=== PATIENT | female | born 1970 ===

== ENCOUNTER 2016-07-19 21:29 | Emergency (ER) | payer SELFPAY ==
[2016-07-19 21:45] VITALS: BP 143/110; RESP 18; TEMP 98; O2SAT 100
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
[2016-07-19 23:15] VITALS: PULSE 73
--- NOTE | 2016-07-20 17:21 | CARD ---
APPROVED REPORT EKG Measurement Heart [id number] <Conclusion> Normal sinus rhythm Possible Left atrial enlargement Prolonged QT Abnormal ECG
== END 2016-07-19 23:38 | disposition home or self-care (01) ==
LOC: H.ER 21:29
DX: F41.9 Anxiety disorder, unspecified (principal); I10 Essential (primary) hypertension

== ENCOUNTER 2017-04-21 19:21 | Inpatient (IN) | payer MEDICAID ==
[2017-04-21 19:47] VITALS: O2SAT 100
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
[2017-04-22 02:33] LABS: SQUAMOUS EPITHIAL 1 /hpf (0-5); URINE BACTERIA RARE (<OCC); URINE BILIRUBIN NEGATIVE (NEGATIVE); URINE CLARITY SLIGHTY-CLOUDY (Clear); URINE COLOR YELLOW (YELLOW); URINE GLUCOSE (UA) NEG (Normal); URINE NITRATE NEGATIVE (NEGATIVE); URINE PROTEIN 100 mg/dL (NEGATIVE); URINE UROBILINOGEN 0.2-1.0 mg/dL (0.2-1.0)
[2017-04-22 02:40] LABS: BARBITURATES, UR NEGATIVE (NEGATIVE); BENZODIAZEPINES, UR NEGATIVE (NEGATIVE); OPIATES, UR NEGATIVE (NEGATIVE); PHENCYCLIDINE, UR NEGATIVE (NEGATIVE)
[2017-04-22 02:43] LABS: URINE BLOOD LARGE (NEGATIVE); URINE LEUKOCYTE ESTERASE MODERATE Leu/uL (Negative)
[2017-04-22 02:50] LABS: HEMOGLOBIN 8.2 g/dL (12.0-16.0); MEAN CELL VOLUME 59.9 fl (81.0-99.0); MEAN CORPUSCULAR HEMOGLOBIN 17.8 pg (27.0-31.0); MEAN CORPUSCULAR HGB CONC 29.8 g/dL (33.0-37.0); RBC 4.57 Mil/uL (3.80-5.20); WHITE BLOOD COUNT 6.3 K/uL (4.8-10.8)
[2017-04-22 03:01] LABS: ALB/GLOB RATIO 1.2 (1.0-2.1); ALBUMIN 3.6 g/dL (3.5-5.0); ALT/SGPT 50 U/L (9-52); AST/SGOT 38 U/L (14-36); BLOOD UREA NITROGEN 18 mg/dl (7-17); CALCIUM 8.8 mg/dL (8.4-10.2); GFR AFRICAN-AMERICAN > 60; GFR NON-AFRICAN AMERICAN > 60
--- NOTE | 2017-04-22 04:03 | ED PDOC ---
- Laboratory Results Result Diagrams: 04/22/17 02:45 04/22/17 02:45 - ECG O2 Sat by Pulse Oximetry: 100 Pulse Ox Interpretation: Normal Medical Decision Making Medical Decision Making: Endorsed pending evaluation by crisis. Pt being admitted to psychiatric unit for depression. Disposition - Clinical Impression Clinical Impression: Pharyngitis, Homelessness, UTI (urinary tract infection), Depression - POA Present On Arrival: None - Disposition Disposition: Admitted as In-Patient Disposition Time: 04:02 Condition: STABLE
[2017-04-22] MEDS ORDERED: Pneumococcal 23-Valent Vaccine IM ONE (06:05)
[2017-04-22] MEDS ORDERED: Influenza Vaccine 18yr & older 0.5 ML/45 MCG SYR IM ONE (06:05)
[2017-04-22] MEDS ORDERED: DiphenhydrAMINE 50 mg/ml Inj IM PRN (06:06)
[2017-04-22] MEDS ORDERED: Magnesium Hydroxide Susp 30 ml UD PO PRN (06:06)
[2017-04-22] MEDS ORDERED: Alum-Mag Hydrox-Simethicone Susp (30 mL) PO PRN (06:06)
--- NOTE | 2017-04-22 06:29 | PCM.BM ---
<Bryanna Healy - Last Filed: 04/22/17 06:29> Treatment assets and liabiliti Patient Assests: adapts well, cooperative, educated, insightful, motivated, resourceful, self-reliant, ADL independent, negotiates basic needs, good past tx response Patient Liabilities: financial problems, poor support system, relationship conflicts, medical problems - Milieu Protocol Maintain good personal hygiene: daily Encourage regular showers, other Remind patient to perform daily oral care Conduct patient checks and document Observation sheet: Q15 minutes Maintain personal safety: daily Educate patient to report safety concerns to staff, every shift Monitor environment for contraband/sharps Medication safety: Monitor for expected outcome, potential side effects: every shift, Assess barriers to learning: every shift, Assess readiness for medication education: every shift <Darien Jones - Last Filed: 04/23/17 12:15> - Diagnosis (1) Bipolar depression Status: Acute Interventions: 04/23/17 12:16 psychotherapy , pharmacotherapy <Kendall Correa - Last Filed: 04/23/17 12:32> Family Contact Family involvement: Family/SO is involved Family contact: Patient agrees to contact, Family has been contacted by patient , Telephone contact initiated by staff Family contact name: Cosme (john) Family contacted how many times per week?: 4 Family contact comment: Diamond Blender is unable to contact pt's fiance at this time as his phone is currently not working, but flex o writer operator's number was provided to pt to give to john, so that the pt's fiance can contact this flex o writer operator. - Outside Agency Agency 1 Care involvment: Following patient during stay, Information-sharing Agency contact name: [facility] Agency contact number: [phone] ext. [phone]. Diamond Blender attempted to speak with pt' s counselor at [facility], Cinthya. Diamond Blender spoke with Rylee who informed flex o writer operator that Cinthya is out of the office today, but will be in tomorrow. Rylee informed flex o writer operator that pt is currently linked to [facility] and can return to program once discharged. - Goals for Treatment Patient goals for treatment: Pt's goals for treatment are mostly concrete as she would like to obtain stable housing and work on obtaining state benefits, food stamps, SSI. Discharge/Continuing Care - Education Needs Education Needs: Patient Medication, Patient Diagnosis/Disease Process, Patient Coping Skills, Patient Placement options, Patient Community resources, Patient Aftercare Safety Plan - Discharge Discharge Criteria: Tolerates medication w/o severe side effects, Free of Suicidal thoughts, Free of agitation, Normal sleep pattern, Reduction of target symptoms Discharge to:: Home, [facility] - Treatment Team Participation Was Patient/Family/SO present at Treatment Team Meeting: Yes
[2017-04-22 07:44] LABS: T4 8.66 ug/dl (5.5-11.0)
--- NOTE | 2017-04-22 10:26 | RAD ---
HISTORY: Admission COMPARISON: No prior. FINDINGS: LUNGS: No active pulmonary disease. PLEURA: No significant pleural effusion identified, no pneumothorax apparent. CARDIOVASCULAR: Normal. OSSEOUS STRUCTURES: No significant abnormalities. VISUALIZED UPPER ABDOMEN: Normal. OTHER FINDINGS: None. IMPRESSION: No active disease.
--- NOTE | 2017-04-22 10:50 | CARD ---
APPROVED REPORT EKG Measurement Heart [id number] <Conclusion> Normal sinus rhythm Prolonged QT Abnormal ECG
--- NOTE | 2017-04-22 11:32 | CP.PCM.CON ---
<Dominick Franklin - Last Filed: 04/22/17 14:21> History of Present Illness - History of Present Illness History of Present Illness: 46 y/o female with PMHx of Anemia, Anxiety, Asthma, Bipolar Disorder, Depression , HTN (Gestational), Kidney Stones, Post Traumatic Stress Disorder, Chronic Kidney Disease, Schizophrenia was seen and evaluated at bedside on psych floor. Patient states that she came in to the ED yesterday because she was irritated and paranoid at her neighbors. Patient reports that they were making too much noise which upset her which led her to come to the hospital. Patient denied of any suicidal ideation. Patient denied of any recent changes in her mood aside from the incident which occured yesterday. Patient reports that she is feeling a lot better today and feels as if she is fully improved. Patient denied of any recent F/N/V/C/SOB/CP/headache/diarrhea. Patient denied of any other complains at this time. PMHx: Anemia, Anxiety, Asthma, Bipolar Disorder, Depression, HTN (Gestational), Kidney Stones, Post Traumatic Stress Disorder, Chronic Kidney Disease, Schizophrenia PSHx: Tubal ligation Allergies: Ibuprofen SHx: denies smoking, EtOH use or illicit drug usage, lives alone FHx: Denies on both side Review of Systems - Constitutional Constitutional: As Per HPI Past Patient History - Infectious Disease Hx of Infectious Diseases: None - Past Social History Alcohol: None Drugs: Denies - CARDIAC Hx Cardiac Disorders: No - PULMONARY Hx Respiratory Disorders: No - NEUROLOGICAL HX Cerebrovascular Accident: No Hx Seizures: No Hx Transient Ischemic Attacks (TIA): No - HEENT Hx HEENT Problems: No - RENAL Hx Chronic Kidney Disease: Yes Hx Kidney Stones: Yes - ENDOCRINE/METABOLIC Hx Endocrine Disorders: No - HEMATOLOGICAL/ONCOLOGICAL Hx Cancer: No Hx Human Immunodeficiency Virus (HIV): No - INTEGUMENTARY Hx Dermatological Problems: No - MUSCULOSKELETAL/RHEUMATOLOGICAL Hx Musculoskeletal Disorders: No - GASTROINTESTINAL Hx Gastrointestinal Disorders: No - GENITOURINARY/GYNECOLOGICAL Hx Sexually Transmitted Disorders: No - PSYCHIATRIC Hx Schizophrenia: Yes Hx Substance Use: No - SURGICAL HISTORY Hx Surgeries: Yes Hx Tubal Ligation: Yes Other/Comment: lithotripsy - ANESTHESIA Hx Anesthesia: Yes Hx Anesthesia Reactions: No Hx Malignant Hyperthermia: No Has any member of the family had a problem w/ anesthesia?: No Meds Allergies/Adverse Reactions: Allergies Allergy/AdvReac Type Severity Reaction Status Date / Time aloe vera Allergy RASH Verified 04/22/17 01:44 ibuprofen Allergy RASH Verified 04/22/17 01:45 paint Allergy RASH Uncoded 04/22/17 01:44 - Medications Medications: Current Medications Acetaminophen (Tylenol 325mg Tab) 650 mg PO Q4 PRN PRN Reason: pain level 3-7 Last Admin: 04/22/17 08:04 Dose: 650 mg Al Hydrox/Mg Hydrox/Simethicone (Maalox Plus 30 Ml) 30 ml PO Q4 PRN PRN Reason: Dyspepsia Ciprofloxacin (Cipro) 500 mg PO Q12 OWEN PRN Reason: Protocol Last Admin: 04/22/17 03:06 Dose: 500 mg Diphenhydramine HCl (Benadryl) 50 mg IM Q6 PRN PRN Reason: Extrapyramidal S/S Unable PO Diphenhydramine HCl (Benadryl) 50 mg PO Q6 PRN PRN Reason: Extrapyramidal Symptoms Diphenhydramine HCl (Benadryl) 50 mg PO HS PRN PRN Reason: Sleep Haloperidol (Haldol) 5 mg PO Q4 PRN PRN Reason: Agitation Haloperidol Lactate (Haldol) 5 mg IM Q4 PRN PRN Reason: Agitation, Unable to Take PO Lorazepam (Ativan) 2 mg IM Q4 PRN PRN Reason: Anxiety/Agitation,Unable PO Lorazepam (Ativan) 2 mg PO Q4 PRN PRN Reason: Anxiety/Agitation Magnesium Hydroxide (Milk Of Magnesia) 30 ml PO HS PRN PRN Reason: Constipation Physical Exam - Constitutional Appears: Well, Non-toxic, No Acute Distress - Head Exam Head Exam: ATRAUMATIC - Eye Exam Eye Exam: Normal appearance, PERRL - ENT Exam ENT Exam: Normal Exam - Neck Exam Neck exam: Positive for: Full Rom, Normal Inspection. Negative for: Lymphadenopathy - Respiratory Exam Respiratory Exam: Clear to Auscultation Bilateral, NORMAL BREATHING PATTERN. absent: Rales, Rhonchi, Wheezes - Cardiovascular Exam Cardiovascular Exam: REGULAR RHYTHM, +S1, +S2 - GI/Abdominal Exam GI & Abdominal Exam: Normal Bowel Sounds, Soft. absent: Guarding - Rectal Exam Rectal Exam: Deferred - Extremities Exam Extremities exam: Positive for: full ROM, normal capillary refill, normal inspection, pedal pulses present. Negative for: calf tenderness, pedal edema, tenderness - Back Exam Back exam: FULL ROM, NORMAL INSPECTION. absent: vertebral tenderness - Neurological Exam Neurological exam: Alert, Normal Gait, Oriented x3 - Psychiatric Exam Psychiatric exam: Normal Affect, Normal Mood - Skin Skin Exam: Dry, Intact, Normal Color, Warm Results - Vital Signs Recent Vital Signs: Last Vital Signs Temp 97.9 F 04/22/17 05:12 Pulse 80 04/22/17 05:38 Resp 17 04/22/17 05:38 BP 128/66 04/22/17 05:12 Pulse Ox 100 04/22/17 04:21 - Labs Result Diagrams: 04/22/17 02:45 04/22/17 02:45 Labs: Laboratory Results - last 24 hr 04/21/17 04/22/17 04/22/17 20:36 02:21 02:21 WBC RBC Hgb Hct MCV MCH MCHC RDW Plt Count Sodium Potassium Chloride Carbon Dioxide Anion Gap BUN Creatinine Est GFR ( Amer) Est GFR (Non-Af Amer) Random Glucose Calcium Total Bilirubin AST ALT Alkaline Phosphatase Total Protein Albumin Globulin Albumin/Globulin Ratio Thyroxine (T4) TSH 3rd Generation Urine Color Yellow Urine Clarity Slighty-cloudy Urine pH 7.0 Ur Specific Lambert < 1.005 Urine Protein 100 Urine Glucose (UA) Neg Urine Ketones Negative Urine Blood Large Urine Nitrate Negative Urine Bilirubin Negative Urine Urobilinogen 0.2-1.0 Ur Leukocyte Esterase Moderate Urine RBC (Auto) 3 Urine Microscopic WBC 4 Ur Squamous Epith Cells 1 Urine Bacteria Rare Urine Opiates Screen Negative Urine Methadone Screen Negative Ur Barbiturates Screen Negative Ur Phencyclidine Scrn Negative Ur Amphetamines Screen Negative U Benzodiazepines Scrn Negative U Oth Cocaine Metabols Negative U Cannabinoids Screen Negative Alcohol, Quantitative Grp A Beta Strep Ag Negative 04/22/17 04/22/17 04/22/17 02:45 02:45 06:28 WBC 6.3 RBC 4.57 Hgb 8.2 L Hct 27.4 L MCV 59.9 L MCH 17.8 L MCHC 29.8 L RDW 20.0 H Plt Count 288 Sodium 139 Potassium 3.7 Chloride 107 Carbon Dioxide 28 Anion Gap 8 L BUN 18 H Creatinine 0.9 Est GFR ( Amer) > 60 Est GFR (Non-Af Amer) > 60 Random Glucose 100 Calcium 8.8 Total Bilirubin 0.6 AST 38 H ALT 50 Alkaline Phosphatase 102 Total Protein 6.6 Albumin 3.6 Globulin 3.0 Albumin/Globulin Ratio 1.2 Thyroxine (T4) 8.66 TSH 3rd Generation 1.80 Urine Color Urine Clarity Urine pH Ur Specific Lambert Urine Protein Urine Glucose (UA) Urine Ketones Urine Blood Urine Nitrate Urine Bilirubin Urine Urobilinogen Ur Leukocyte Esterase Urine RBC (Auto) Urine Microscopic WBC Ur Squamous Epith Cells Urine Bacteria Urine Opiates Screen Urine Methadone Screen Ur Barbiturates Screen Ur Phencyclidine Scrn Ur Amphetamines Screen U Benzodiazepines Scrn U Oth Cocaine Metabols U Cannabinoids Screen Alcohol, Quantitative < 10 Grp A Beta Strep Ag Assessment & Plan - Assessment and Plan (Free Text) Assessment: 46 y/o female with PMHx of Anemia, Anxiety, Asthma, Bipolar Disorder, Depression , HTN (Gestational), Kidney Stones, Post Traumatic Stress Disorder, Chronic Kidney Disease, Schizophrenia seen and evaluated in psych for non-symptomatic anemia Plan: Patient seen and evaluated at bedside Patient has non-symptomatic anemia which can be worked up as an outpatient - follow up with a primary care doctor Recommend iron supplements Patient is stable at this time Primary team will continue to follow patient while in house - Date & Time Date: 04/22/17 Time: 11:00 <Ian Solo - Last Filed: 04/22/17 14:33> Meds - Medications Medications: Current Medications Acetaminophen (Tylenol 325mg Tab) 650 mg PO Q4 PRN PRN Reason: pain level 3-7 Last Admin: 04/22/17 08:04 Dose: 650 mg Al Hydrox/Mg Hydrox/Simethicone (Maalox Plus 30 Ml) 30 ml PO Q4 PRN PRN Reason: Dyspepsia Aripiprazole (Abilify) 5 mg PO DAILY [facility] Last Admin: 04/22/17 13:54 Dose: 5 mg Ciprofloxacin (Cipro) 500 mg PO Q12 OWEN PRN Reason: Protocol Last Admin: 04/22/17 13:54 Dose: 500 mg Diphenhydramine HCl (Benadryl) 50 mg IM Q6 PRN PRN Reason: Extrapyramidal S/S Unable PO Diphenhydramine HCl (Benadryl) 50 mg PO Q6 PRN PRN Reason: Extrapyramidal Symptoms Diphenhydramine HCl (Benadryl) 50 mg PO HS PRN PRN Reason: Sleep Haloperidol (Haldol) 5 mg PO Q4 PRN PRN Reason: Agitation Haloperidol Lactate (Haldol) 5 mg IM Q4 PRN PRN Reason: Agitation, Unable to Take PO Lorazepam (Ativan) 2 mg IM Q4 PRN PRN Reason: Anxiety/Agitation,Unable PO Lorazepam (Ativan) 2 mg PO Q4 PRN PRN Reason: Anxiety/Agitation Magnesium Hydroxide (Milk Of Magnesia) 30 ml PO HS PRN PRN Reason: Constipation Paroxetine HCl (Paxil) 10 mg PO HS OWEN Zolpidem Tartrate (Ambien) 5 mg PO HS OWEN Results - Vital Signs Recent Vital Signs: Last Vital Signs Temp 97.9 F 04/22/17 05:12 Pulse 80 04/22/17 05:38 Resp 17 04/22/17 05:38 BP 128/66 04/22/17 05:12 Pulse Ox 100 04/22/17 04:21 - Labs Result Diagrams: 04/22/17 02:45 04/22/17 02:45 Labs: Laboratory Results - last 24 hr 04/21/17 04/22/17 04/22/17 20:36 02:21 02:21 WBC RBC Hgb Hct MCV MCH MCHC RDW Plt Count Sodium Potassium Chloride Carbon Dioxide Anion Gap BUN Creatinine Est GFR ( Amer) Est GFR (Non-Af Amer) Random Glucose Calcium Total Bilirubin AST ALT Alkaline Phosphatase Total Protein Albumin Globulin Albumin/Globulin Ratio Thyroxine (T4) TSH 3rd Generation Urine Color Yellow Urine Clarity Slighty-cloudy Urine pH 7.0 Ur Specific Lambert < 1.005 Urine Protein 100 Urine Glucose (UA) Neg Urine Ketones Negative Urine Blood Large Urine Nitrate Negative Urine Bilirubin Negative Urine Urobilinogen 0.2-1.0 Ur Leukocyte Esterase Moderate Urine RBC (Auto) 3 Urine Microscopic WBC 4 Ur Squamous Epith Cells 1 Urine Bacteria Rare Urine Opiates Screen Negative Urine Methadone Screen Negative Ur Barbiturates Screen Negative Ur Phencyclidine Scrn Negative Ur Amphetamines Screen Negative U Benzodiazepines Scrn Negative U Oth Cocaine Metabols Negative U Cannabinoids Screen Negative Alcohol, Quantitative Grp A Beta Strep Ag Negative 04/22/17 04/22/17 04/22/17 02:45 02:45 06:28 WBC 6.3 RBC 4.57 Hgb 8.2 L Hct 27.4 L MCV 59.9 L MCH 17.8 L MCHC 29.8 L RDW 20.0 H Plt Count 288 Sodium 139 Potassium 3.7 Chloride 107 Carbon Dioxide 28 Anion Gap 8 L BUN 18 H Creatinine 0.9 Est GFR ( Amer) > 60 Est GFR (Non-Af Amer) > 60 Random Glucose 100 Calcium 8.8 Total Bilirubin 0.6 AST 38 H ALT 50 Alkaline Phosphatase 102 Total Protein 6.6 Albumin 3.6 Globulin 3.0 Albumin/Globulin Ratio 1.2 Thyroxine (T4) 8.66 TSH 3rd Generation 1.80 Urine Color Urine Clarity Urine pH Ur Specific Lambert Urine Protein Urine Glucose (UA) Urine Ketones Urine Blood Urine Nitrate Urine Bilirubin Urine Urobilinogen Ur Leukocyte Esterase Urine RBC (Auto) Urine Microscopic WBC Ur Squamous Epith Cells Urine Bacteria Urine Opiates Screen Urine Methadone Screen Ur Barbiturates Screen Ur Phencyclidine Scrn Ur Amphetamines Screen U Benzodiazepines Scrn U Oth Cocaine Metabols U Cannabinoids Screen Alcohol, Quantitative < 10 Grp A Beta Strep Ag Attending/Attestation - Attestation I have personally seen and examined this patient.: Yes I have fully participated in the care of the patient.: Yes I have reviewed all pertinent clinical information: Yes Notes (Text): No active medical issues. Anemia workup as outpatient. Not symptomatic.
--- NOTE | 2017-04-22 12:49 | PCM.PSYCH ---
Initial Psychiatric Evaluation - Initial Psychiatric Evaluation Type of Admission: Voluntary Legal Status: Capacity Chief Complaint (in patient's own words): I have a hard life Patient's Reaction to Hospitalization: pt requested help History of Present Illness and Precipitating Events: pt is a poor historian, REPORTED previous diagnosis of depression with history of one previous psychiatric hospitalization 3 years ago, now following up with Dr CHEUNG she sees him once a month, pt is also homeless , has four children currently living with father, would not elaborate why she lost custody of the children pt stated she has been feeling increasingly depressed as she has a pending case of child child supportand she cannot afford paying it also she has been missing her children, on the day of presenting to ER she experienced suicidal thoughts with plan to jump off the bridge so she came to ER seeking help reported decreased sleep, depressed mood, pt however presenting with overproductive speech, circumstantial thought process and labile affect denied any current perceptual disturbances denied command hallucinations, denied substance useand denied suicidal ideations or homicidal ideations on the unit Current Medications: Active Medications Generic Name Dose Route Start Last Admin Trade Name Freq PRN Reason Stop Dose Admin Acetaminophen 650 mg 04/22/17 06:06 04/22/17 08:04 Tylenol 325mg Tab PO 650 mg Q4 PRN Administration pain level 3-7 Al Hydrox/Mg Hydrox/Simethicone 30 ml 04/22/17 06:06 Maalox Plus 30 Ml PO Q4 PRN Dyspepsia Aripiprazole 5 mg 04/22/17 11:30 Abilify PO DAILY OWEN Ciprofloxacin 500 mg 04/22/17 03:00 04/22/17 03:06 Cipro PO 500 mg Q12 OWEN Administration Protocol Diphenhydramine HCl 50 mg 04/22/17 06:06 Benadryl IM Q6 PRN Extrapyramidal S/S Unable PO Diphenhydramine HCl 50 mg 04/22/17 06:06 Benadryl PO Q6 PRN Extrapyramidal Symptoms Diphenhydramine HCl 50 mg 04/22/17 06:10 Benadryl PO HS PRN Sleep Haloperidol 5 mg 04/22/17 06:06 Haldol PO Q4 PRN Agitation Haloperidol Lactate 5 mg 04/22/17 06:06 Haldol IM Q4 PRN Agitation, Unable to Take PO Lorazepam 2 mg 04/22/17 06:06 Ativan IM Q4 PRN Anxiety/Agitation,Unable PO Lorazepam 2 mg 04/22/17 06:06 Ativan PO Q4 PRN Anxiety/Agitation Magnesium Hydroxide 30 ml 04/22/17 06:06 Milk Of Magnesia PO HS PRN Constipation Paroxetine HCl 10 mg 04/22/17 22:00 Paxil PO HS OWEN Trazodone HCl 50 mg 04/22/17 22:00 Desyrel PO HS OWEN Past Psychiatric History - Past Psychiatric History Explanation of prior treatment: pt reported one previous hospitalization at [facility] due to depression History of ETOH/Drug Use: non reported History of Family Illness: non reported Pertinent Medical Hx (Current Medical&Sleep Prob, Allergies): Allergies Allergy/AdvReac Type Severity Reaction Status Date / Time aloe vera Allergy RASH Verified 04/22/17 01:44 ibuprofen Allergy RASH Verified 04/22/17 01:45 paint Allergy RASH Uncoded 04/22/17 01:44 PARoxetine [Paxil] 30 mg PO DAILY #30 tab 07/17/16 Xanax 1 tab PO TID 04/12/17 Mental Status Examination - Personal Presentation Personal Presentation: Looks stated age Additional comments: guarded poor eye contact - Affect Affect: Broad Additional comments: labile irritable - Motor Activity Motor Activity: Psychomotor Agitation - Reliability in Providing Information Reliability in Providing Information: Poor, due to altered mood - Speech Speech: Tangential Additional comments: overproductive - Mood Mood: Depressed, Anxious - Formal Thought Process Formal Thought Process: Circumstantial - Hallucinations/Delusions Additional comments: pt denied perceptual disturbances, non elicited - Obsessions/Compulsions Obsessions: No Compulsions: No - Cognitive Functions Orientation: Person, Place, Situation Sensorium: Alert Attention/Concentration: Easily distracted Abstract Thinking: Lamont Estimate of Intelligence: Average Judgement: Imparied, as evidence by: Poor judgement, Imparied, as evidence by: Lack of insight into illness Memory: Recent intact, as evidence by: Ability to recall events of the day - Risk Risk: Suicidal, Diminished functioning - Strength & Assets Inventory Strength & Assets Inventory: Life experience - Limitations Additional comments: legal problems DSM 5 DX - DSM 5 DSM 5 Diagnosis: bipolar disorder depressed - Recommended/Plan of Treatment Treatment Recommendations and Plan of Treatment: start abilify 5mg for mood stabiliztion continue paxil 10mg qhs with plan to discontinue with pt consent alecien 5m group and supportive therapy qhs Projected ELOS: 7 days Discharge Plan and Discharge Criteria: pt mood stable
[2017-04-22] MEDS ORDERED: Benzocaine/Menthol (Cepacol) Lozenge PO PRN (20:50)
[2017-04-23 07:49] LABS: HDL CHOLESTEROL 55 MG/DL (30-70)
[2017-04-23 08:00] LABS: LDL CHOLESTEROL 82 mg/dL (0-129)
--- NOTE | 2017-04-23 12:40 | PCM.PYCHPN ---
Psychiatric Progress Note - Psychiatric Progress Note Patient seen today, length of contact: pt evaluated discussed with team chart reviewed Patient Chief Complaint: I want to be with my father Problems Identified/Issues Discussed: pt on evaluation, hypomanic, with increased energy, over productive speech, loud , intrusive at times with other patients, presenting with labile affect at times cheerful and at other times depressed and crying, thought form circumstantial, argumentative about her medications, refusing mood stabilizers for fear of weight gain pt denied any current perceptual disturbances non elicited, denied any current suicidal or homicidal ideations l Medical Problems: pt reported one previous hospitalization at [facility] [place] due to depression DSM 5 Symptoms Update: bipolar I disorder mixed Medication Change: Yes (start trileptal) Medical Record Reviewed: Yes Mental Status Examination - Cognitive Function Orientation: Person, Place, Situation Memory: Intact Attention: Poor Concentration: Poor Association: WNL Fund of Knowledge: WNL Decription of patient's judgement and insights: impaired insight and poor judgment - Mood Mood: Depressed, Anxious - Affect Affect: Broad Additional comments: labile - Speech Speech: Loud, Pressured - Formal Thought Process Formal Thought Process: Circumstantial Psychotic Thoughts and Behaviors: pt denied psychotic symptoms non elicited - Suicidal Ideation Suicidal Ideation: No - Homicidal Ideation Homicidal Ideation: No Goal/Treatment Plan - Goal/Treatment Plan Need for Continued Stay: Discharge may exacerbated symptoms Progress Toward Problem(s) and Goals/Treatment Plan: Increase abilify 5mg for mood stabiliztion decrease paxil to 5mg qhs with plan to discontinue increase ambien to 10mg qhs , start trileptal 150 mg bid group and supportive therapy qhs Estimated Date of D/C: 04/28/17
--- NOTE | 2017-04-24 11:55 | PCM.PYCHPN ---
Psychiatric Progress Note - Psychiatric Progress Note Patient seen today, length of contact: pt evaluated discussed with team chart reviewed Patient Chief Complaint: I am trying to organize for my wedding in december Problems Identified/Issues Discussed: pt on evaluation, continues to be hypomanic, overproductive speech, thought process circumstantial, grandiose delusions, labile and irritable affect, reported mood unhappy as she would like to be outside and conquer the world pt educated about importance of compliance with medications and being on a mood stabilizer, pt agreed with increasing dose of trileptal denied any current suicidal or homicidal idetions denied perceptual disturbances no reported side effects of medications Medical Problems: pt reported one previous hospitalization at [facility] due to depression DSM 5 Symptoms Update: bipolar I disorder mixed episode Medication Change: Yes (increase trileptal) Medical Record Reviewed: Yes Mental Status Examination - Cognitive Function Orientation: Person, Place, Situation Memory: Intact Attention: WNL Concentration: Poor Association: WNL Fund of Knowledge: WNL Decription of patient's judgement and insights: impaired insight and poor judgment - Mood Mood: Depressed, Anxious - Affect Affect: Broad Additional comments: labile, irritable - Speech Speech: Loud, Pressured - Formal Thought Process Formal Thought Process: Circumstantial Psychotic Thoughts and Behaviors: pt denied psychotic symptoms non elicited - Suicidal Ideation Suicidal Ideation: No - Homicidal Ideation Homicidal Ideation: No Goal/Treatment Plan - Goal/Treatment Plan Need for Continued Stay: Discharge may exacerbated symptoms Progress Toward Problem(s) and Goals/Treatment Plan: continue with abilify 5mg for mood stabiliztion and grandiose delusions discontinue paxil , increase trileptal to 300mg bid continue with ambien to 10mg qhs , group and supportive therapy qhs Estimated Date of D/C: 04/28/17
--- NOTE | 2017-04-25 15:15 | PCM.PYCHPN ---
Psychiatric Progress Note - Psychiatric Progress Note Patient seen today, length of contact: pt evaluated discussed with team chart reviewed Patient Chief Complaint: I like to buy a lot of things but I have no money Problems Identified/Issues Discussed: pt evaluated, continues to be hypomanic , overproductive speech , labile affect , increased energy, thought form ciircumstantial pt reported decreased sleep with late insomnia no reported side effects of medications denied suicidal or homicidal ideations denied perceptual disturbances Medical Problems: pt reported one previous hospitalization at [facility] due to depression DSM 5 Symptoms Update: bipolar I disorder mixed Medication Change: Yes (increase trileptal) Medical Record Reviewed: Yes Mental Status Examination - Cognitive Function Orientation: Person, Place, Situation Memory: Intact Attention: WNL Concentration: Poor Association: WNL Fund of Knowledge: WNL Decription of patient's judgement and insights: impaired insight and poor judgment - Mood Mood: Depressed, Anxious - Affect Affect: Broad - Speech Speech: Loud, Pressured - Formal Thought Process Formal Thought Process: Circumstantial Psychotic Thoughts and Behaviors: pt denied psychotic symptoms non elicited - Suicidal Ideation Suicidal Ideation: No - Homicidal Ideation Homicidal Ideation: No Goal/Treatment Plan - Goal/Treatment Plan Need for Continued Stay: Discharge may exacerbated symptoms Progress Toward Problem(s) and Goals/Treatment Plan: continue with abilify 5mg for mood stabiliztion and grandiose delusions discontinue paxil , increase trileptal to 300mg tid continue with ambien to 10mg qhs , group and supportive therapy qhs Estimated Date of D/C: 04/28/17
[2017-04-26 09:15] VITALS: RESP 18
--- NOTE | 2017-04-26 18:37 | PCM.PYCHPN ---
Psychiatric Progress Note - Psychiatric Progress Note Patient seen today, length of contact: pt evaluated discussed with team chart reviewed Patient Chief Complaint: was at [facility] became depressed came to hospital hx of bipolar Problems Identified/Issues Discussed: alteration in coping alteration in domicile Medical Problems: per chart Diagnostic Results: per psychiatry per medicine per nursing per social work DSM 5 Symptoms Update: mood symptoms somewhat improving although continues to be somewhat hypomanic t Medication Change: No Medical Record Reviewed: Yes Consults ordered or reviewed: pt being followed by hospitalist Mental Status Examination - Cognitive Function Orientation: Person, Place, Situation Memory: Intact Attention: WNL Concentration: Poor Association: WNL Fund of Knowledge: [facility] Decription of patient's judgement and insights: impaired - Mood Mood: Depressed, Anxious - Affect Affect: Broad - Speech Speech: Loud, Pressured - Formal Thought Process Formal Thought Process: Circumstantial - Homicidal Ideation Homicidal Ideation: No Goal/Treatment Plan - Goal/Treatment Plan Need for Continued Stay: Discharge may exacerbated symptoms Progress Toward Problem(s) and Goals/Treatment Plan: inpt milieu adjust rx per status recent increase trileptal yesterday discharge planning in [facility] Estimated Date of D/C: 04/28/17 - Smoking Cessation Smoking Cessation Initiated: No Reason for not providing: defers
[2017-04-27 20:36] VITALS: PULSE 80
--- NOTE | 2017-04-27 20:52 | PCM.PYCHPN ---
Psychiatric Progress Note - Psychiatric Progress Note Patient seen today, length of contact: pt evaluated discussed with team chart reviewed Patient Chief Complaint: reports feeling calmer, staff report pt somewhat calmer , adherent with rx. denies notable side effects with medications Problems Identified/Issues Discussed: alteration in mood alteration in sleep alteration in coping alteration in domicile Medical Problems: per chart Diagnostic Results: per psychiatry per medicine per nursing per social work DSM 5 Symptoms Update: improving mood ?improvement in sleepi Medication Change: No Medical Record Reviewed: Yes Consults ordered or reviewed: pt being followed by hospitalist Mental Status Examination - Cognitive Function Orientation: Person, Place, Situation Memory: Intact Attention: WNL Concentration: Poor Association: WNL Fund of Knowledge: WNL Decription of patient's judgement and insights: impaired - Mood Mood: Depressed, Anxious - Affect Affect: Broad - Speech Speech: Loud, Pressured - Formal Thought Process Formal Thought Process: Circumstantial - Suicidal Ideation Suicidal Ideation: No - Homicidal Ideation Homicidal Ideation: No Goal/Treatment Plan - Goal/Treatment Plan Need for Continued Stay: Discharge may exacerbated symptoms Progress Toward Problem(s) and Goals/Treatment Plan: inpt milieu adjust rx per status recent increase trileptal yesterday vital signs/clinical observation per protocol and per clinical status discharge planning in [facility] Estimated Date of D/C: 04/28/17 - Smoking Cessation Smoking Cessation Initiated: No Reason for not providing: pt defers
[2017-04-28 08:34] VITALS: BP 128/75; TEMP 98.4
--- NOTE | 2017-04-28 13:53 | PCM.PYCHDC ---
Mental Status Examination - Mental Status Examination Orientation: Person, Place, Situation Memory: Intact Mood: Neutral Affect: Broad Attention: WNL Concentration: WNL Association: WNL Fund of Knowledge: WNL Formal Thought Process: No Impairment Description of patient's judgement and insight: partial insight and poor judgment Psychotic Thoughts and Behaviors: pt denied psychotic symptoms non elicited Suicidal Ideation: No Current Homicidal Ideation?: No Discharge Summary - Discharge Note Reason for Hospitalization: pt requested help REPORTED previous diagnosis of depression with history of one previous psychiatric hospitalization 3 years ago, now following up with Dr CHEUNG she sees him once a month, pt is also homeless , has four children currently living with father, would not elaborate why she lost custody of the children pt stated she has been feeling increasingly depressed as she has a pending case of child child supportand she cannot afford paying it also she has been missing her children, on the day of presenting to ER she experienced suicidal thoughts with plan to jump off the bridge so she came to ER seeking help reported decreased sleep, depressed mood, pt however presenting with overproductive speech, circumstantial thought process and labile affect denied any current perceptual disturbances denied command hallucinations, denied substance useand denied suicidal ideations or homicidal ideations on the unit Consultations:: List each consultation separately and include: 1. Reason for request. 2. Findings. 3. Follow-up Summary of Hospital Course include:: 1. Description of specific treatment plan utilized for patients during their course of treatmen. 2. Summarize the time- course for resolution of acute symptoms and/or regressed behaviors. 3. Describe issues identified and worked on during hospitalization. 4. Describe medication utilized. 5. Describe medical problems identified and treated. 6. Reassessment of suicide risk Summary of Hospital Course: pt on admission was labile , irritable and hypomanic, paxil was gradually discontinued and pt was started on trileptal, abilify and ambien, it was gradually uptitrated pt gradually became compliant with treatment attended groups , mood and affect gradually less kabile no reported side effects of medications CBT suopportive and group therapy provided on discharge mental status pt denied suicidal or homicidal ideations denied perceptual disturbances, not danger to self or others - Diagnosis (1) Bipolar depression Current Visit: Yes Status: Acute - Final Diagnosis (DSM 5) Condition upon Discharge: STABLE DSM 5: bipolar I disorer mixed severe without psychotic features Disposition: HOME/ ROUTINE Follow-up Treatment Plan: continue with abilify 5mg for mood stabiliztion and grandiose delusions discontinue paxil , increase trileptal to 300mg tid continue with ambien to 10mg qhs , group and supportive therapy qhs Prescriptions/Medication Reconciliation: ARIPiprazole [Abilify] 10 mg PO HS 15 Days #15 tab ARIPiprazole [Abilify] 5 mg PO DAILY 15 Days #15 tab OXcarbazepine [Trileptal] 300 mg PO BID 15 Days #30 tab Zolpidem [Ambien] 10 mg PO HS 3 Days #15 tab - Antipsychotic Medications Pt discharged on 2 or more routine antipsychotic medications: No
== END 2017-04-28 14:09 | disposition home or self-care (01) | DRG 430 ==
LOC: H.ER 19:21 → H.ERHOLD 04-22 03:15 → H.PSYCH 04-22 05:34
PROVIDERS: ADMIT Psychiatry & Neurology Psychiatry; ATTEND Psychiatry & Neurology Psychiatry
PROC: GZHZZZZ Group Psychotherapy (ICD-10-PCS; principal; 2017-04-22)
PROC: GZ58ZZZ Individual Psychotherapy, Cognitive-Behavioral (ICD-10-PCS; 2017-04-22)
PROC: GZ56ZZZ Individual Psychotherapy, Supportive (ICD-10-PCS; 2017-04-22)
PROC: 3E0234Z Introduction of Serum, Toxoid and Vaccine into Muscle, Percutaneous Approach (ICD-10-PCS; 2017-04-22)
DX: F31.63 Bipolar disorder, current episode mixed, severe, without psychotic features (principal); D64.9 Anemia, unspecified; N18.9 Chronic kidney disease, unspecified; G47.09 Other insomnia; Z59.0 Homelessness; J02.9 Acute pharyngitis, unspecified; J45.909 Unspecified asthma, uncomplicated; Z23 Encounter for immunization; Z88.6 Allergy status to analgesic agent

== ENCOUNTER 2017-09-20 22:56 | Emergency (ER) | payer MEDICAID ==
[2017-09-20 22:59] VITALS: BMI 27.4
--- NOTE | 2017-09-20 23:48 | ED PDOC ---
HPI: Psych/Substance Abuse Time Seen by Provider: 09/20/17 23:10 Chief Complaint (Provider): Psychiatric Evaluation History Per: Patient History/Exam Limitations: no limitations Onset/Duration Of Symptoms: Hrs Current Symptoms Are (Timing): Still Present Associated Symptoms: Depression, Suicidal Thoughts. denies: Suicidal Plan Additional Complaint(s): Hiwot Villanueva is a 47 year old female with a past medical history of PTSD, anxiety, hypertension, and depression, who is presenting to the ED with complaints of severe depression and suicidal thoughts, onset this morning s/p son telling her that he disowned her. Patient denies any specific plan as well as taking any medications for her depression. She denies any homicidal ideation , auditory or visual hallucinations. Patient offers no other medical complaints at this time. PMD: [facility] Past Medical History Reviewed: Historical Data, Nursing Documentation, Vital Signs Vital Signs: Last Vital Signs Temp 98.2 F 09/20/17 22:59 Pulse 78 09/20/17 22:59 Resp 17 09/20/17 22:59 BP 165/100 H 09/20/17 22:59 Pulse Ox 98 09/20/17 22:59 - Medical History PMH: Anemia, Anxiety, Asthma, Bipolar Disorder, Depression, HTN (Gestational), Kidney Stones, Post Traumatic Stress Disorder, Chronic Kidney Disease, Schizophrenia Denies: Diabetes, Hepatitis, HIV, Seizures, Sexually Transmitted Disease, TIA - Surgical History Surgical History: No Surg Hx - Family History Family History: States: Hypertension - Social History Current smoker - smoking cessation education provided: No Alcohol: None Drugs: Denies - Immunization History Hx Tetanus Toxoid Vaccination: No Hx Influenza Vaccination: No Hx Pneumococcal Vaccination: No - Home Medications Home Medications: Ambulatory Orders Medication Instructions Recorded PARoxetine [Paxil] 30 mg PO DAILY #30 tab 07/17/16 Xanax 1 tab PO TID 04/12/17 ARIPiprazole [Abilify] 5 mg PO DAILY 15 Days #15 tab 04/28/17 ARIPiprazole [Abilify] 10 mg PO HS 15 Days #15 tab 04/28/17 Ciprofloxacin [Cipro] 500 mg PO Q12 tab 04/28/17 OXcarbazepine [Trileptal] 300 mg PO BID 15 Days #30 tab 04/28/17 Zolpidem [Ambien] 10 mg PO HS 3 Days #15 tab 04/28/17 Acetaminophen [Tylenol] 325 mg PO Q6 PRN #30 tab 06/17/17 Amoxicillin/Clavulanate [Augmentin 1 tab PO BID #14 tab 06/17/17 875 MG-125 MG] Benzonatate [Tessalon Perles] 200 mg PO TID PRN #21 sgl 06/17/17 Meclizine HCl 25 mg PO TID PRN #21 tab 06/17/17 Phenazopyridine HCl [Pyridium] 200 mg PO TID #7 tablet 06/17/17 Nitrofurantoin Macrocrystals 100 mg PO BID 5 Days cap 09/21/17 [Macrobid] - Allergies Allergies/Adverse Reactions: Allergies Allergy/AdvReac Type Severity Reaction Status Date / Time aloe vera Allergy RASH Verified 06/17/17 10:22 ibuprofen Allergy RASH Verified 06/17/17 10:22 paint Allergy Mild RASH Uncoded 06/17/17 10:22 Review of Systems ROS Statement: Except As Marked, All Systems Reviewed And Found Negative Psych: Positive for: Depression, Suicidal ideation. Negative for: Other ( homicidal ideation, auditory or visual hallucinations) Physical Exam - Reviewed Nursing Documentation Reviewed: Yes Vital Signs Reviewed: Yes - Physical Exam Appears: Positive for: Well, Non-toxic, No Acute Distress Head Exam: Positive for: ATRAUMATIC, NORMOCEPHALIC Skin: Positive for: Warm, Dry Eye Exam: Positive for: EOMI, PERRL ENT: Negative for: Pharyngeal Erythema, Tonsillar Exudate Neck: Positive for: Painless ROM, Supple Cardiovascular/Chest: Positive for: Regular Rate, Rhythm. Negative for: Murmur Respiratory: Positive for: Normal Breath Sounds. Negative for: Respiratory Distress Gastrointestinal/Abdominal: Positive for: Soft. Negative for: Tenderness Back: Positive for: Normal Inspection. Negative for: Decreased ROM Extremity: Positive for: Normal ROM. Negative for: Deformity Lymphatic: Negative for: Adenopathy Neurologic/Psych: Positive for: Alert, embossing tool setter II-XII (intact), Oriented (x3), Mood/ Affect (depressed mood and affect). Negative for: Motor/Sensory Deficits - Laboratory Results Result Diagrams: 09/21/17 00:04 09/21/17 03:40 - ECG O2 Sat by Pulse Oximetry: 98 (RA) Pulse Ox Interpretation: Normal Medical Decision Making Medical Decision Making: Time: 23:28 Impression: Depression with Suicidal Ideation Plan: --Acetaminophen --Alcohol Serum --Salicylate --CMP --CBC --Drug Screen --Crisis Evaluation --ED Urine Dipstick --ED Urine 12a Endorsed to Dr Morin pending ER workup and crisis eval and final disposition Scribe Attestation: Documented by, Danelle Barnard acting as a scribe for Jessica Herrmann MD. Provider Scribe Attestation: All medical record entries made by the Scribe were at my direction and personally dictated by me. I have reviewed the chart and agree that the record accurately reflects my personal performance of the history, physical exam, medical decision making, and the department course for this patient. I have also personally directed, reviewed, and agree with the discharge instructions and disposition. Disposition - Clinical Impression Clinical Impression: UTI (urinary tract infection), Depressive disorder - Disposition Referrals: [facility] [Outside] Disposition: Transfer of Care Disposition Time: 00:00 Condition: STABLE Prescriptions: Nitrofurantoin Macrocrystals [Macrobid] 100 mg PO BID 5 Days cap Instructions: Urinary Tract Infections in Adults, Depression Forms: [employer] ([employer]) Patient Signed Over To: Bob Morin Handoff Comments: Pending ER workup, ER workup and final ER disposition
[2017-09-21 00:16] LABS: BASO # 0.1 K/uL (0.0-0.2); EOS # 0.2 K/uL (0.0-0.7); EOS % 3.3 % (0.0-4.0); HEMOGLOBIN 10.4 g/dL (12.0-16.0); LYMPH # 1.5 K/uL (1.0-4.3); LYMPH % 21.7 % (20.0-40.0); MEAN CELL VOLUME 69.4 fl (81.0-99.0); MEAN CORPUSCULAR HEMOGLOBIN 21.6 pg (27.0-31.0); MEAN PLATELET VOLUME 8.6 fl (7.2-11.7); MONO # 0.5 K/uL (0.0-0.8); MONO % 7.1 % (0.0-10.0); NEUT # 4.7 K/uL (1.8-7.0); NEUT % 66.9 % (50.0-75.0); RBC 4.82 Mil/uL (3.80-5.20); RED CELL DISTRIBUTION WIDTH 25.9 % (11.5-14.5)
[2017-09-21 00:33] LABS: ACETAMINOPHEN < 10.0 ug/ml (10.0-30.0); SALICYLATE < 1.0 mg/dl
--- NOTE | 2017-09-21 02:48 | ED PDOC ---
- Laboratory Results Result Diagrams: 09/21/17 00:04 09/21/17 03:40 - ECG O2 Sat by Pulse Oximetry: 98 (RA) Pulse Ox Interpretation: Normal Medical Decision Making Medical Decision Making: Time: 00:00 Patient was endorsed to me Dr. Herrmann pending labs, crisis evaluation, and, ED workup. 0300 No events 0700 Pendign crisis eval, will endorse to Dr. Matthews Scribe Attestation: Documented by, Danelle Barnard acting as a scribe for Bob Morin MD. Provider Scribe Attestation: All medical record entries made by the Scribe were at my direction and personally dictated by me. I have reviewed the chart and agree that the record accurately reflects my personal performance of the history, physical exam, medical decision making, and the department course for this patient. I have also personally directed, reviewed, and agree with the discharge instructions and disposition. Disposition - Clinical Impression Clinical Impression: UTI (urinary tract infection), Depressive disorder - POA Present On Arrival: None - Disposition Referrals: [facility] [Outside] Disposition: Transfer of Care Disposition Time: 07:00 Condition: STABLE Prescriptions: Nitrofurantoin Macrocrystals [Macrobid] 100 mg PO BID 5 Days cap Instructions: Urinary Tract Infections in Adults, Depression Forms: [employer] (Irish) Patient Signed Over To: Latia Matthews Handoff Comments: pending crisis eval
[2017-09-21 02:50] LABS: BARBITURATES, UR NEGATIVE (NEGATIVE); BENZODIAZEPINES, UR NEGATIVE (NEGATIVE)
[2017-09-21 02:51] LABS: OPIATES, UR NEGATIVE (NEGATIVE); PHENCYCLIDINE, UR NEGATIVE (NEGATIVE)
[2017-09-21 03:11] LABS: SQUAMOUS EPITHIAL 2 /hpf (0-5); URINE BACTERIA RARE (<OCC)
[2017-09-21 03:18] LABS: URINE BILIRUBIN NEGATIVE (NEGATIVE); URINE BLOOD LARGE (NEGATIVE); URINE CLARITY SLIGHTY-CLOUDY (Clear); URINE COLOR YELLOW (YELLOW); URINE GLUCOSE (UA) NEG (Normal); URINE LEUKOCYTE ESTERASE MOD Leu/uL (Negative); URINE PROTEIN NEGATIVE (NEGATIVE); URINE UROBILINOGEN 0.2-1.0 mg/dL (0.2-1.0)
[2017-09-21 03:47] LABS: BLOOD UREA NITROGEN 23 mg/dl (7-17)
[2017-09-21 03:48] LABS: ALBUMIN 3.5 g/dL (3.5-5.0); CALCIUM 8.6 mg/dL (8.4-10.2); GFR AFRICAN-AMERICAN > 60; GFR NON-AFRICAN AMERICAN > 60
[2017-09-21 03:49] LABS: ALB/GLOB RATIO 1.2 (1.0-2.1); ALT/SGPT 27 U/L (9-52); AST/SGOT 40 U/L (14-36)
[2017-09-21 06:40] VITALS: BP 130/76; PULSE 82; RESP 18; TEMP 98.7
[2017-09-21 22:16] VITALS: O2SAT 98
== END 2017-09-21 06:40 | disposition home or self-care (01) ==
LOC: H.ER 22:56
DX: N39.0 Urinary tract infection, site not specified (principal); F32.9 Major depressive disorder, single episode, unspecified; Z00.8 Encounter for other general examination

== ENCOUNTER 2017-10-28 02:47 | Emergency (ER) | payer MEDICAID ==
[2017-10-28 03:00] VITALS: BMI 26.6
--- NOTE | 2017-10-28 04:19 | ED PDOC ---
HPI: CCC, URI, Sore Throat Time Seen by Provider: 10/28/17 03:13 Chief Complaint (Nursing): Cough, Cold, Congestion Chief Complaint (Provider): Cough History Per: Patient History/Exam Limitations: no limitations Onset/Duration Of Symptoms: Days (x3) Current Symptoms Are (Timing): Still Present Additional Complaint(s): 47 y/o female with a PMHx of kidney stones presenting for evaluation of cough x3 days. Patient states cough is productive of white phlegm. She denies any fevers, chills, sweats. She states she coughs so hard she sometimes feels dizzy and lightheaded. Patient is also complaining of bilateral arm pain, worse when lifting heavy objects. She denies any trauma. Patient says she was seen and evaluated at another ER and prescribed Mobic which provided no relief of symptoms. PMD: Dr. Adeola Mohan Past Medical History Reviewed: Historical Data, Nursing Documentation, Vital Signs Vital Signs: Last Vital Signs Temp 98.9 F 10/28/17 03:01 Pulse 79 10/28/17 03:01 Resp 16 10/28/17 03:01 BP 157/87 H 10/28/17 03:01 Pulse Ox 98 10/28/17 05:33 - Medical History PMH: Anemia, Anxiety, Asthma, Bipolar Disorder, Depression, HTN (Gestational), Kidney Stones, Post Traumatic Stress Disorder, Chronic Kidney Disease, Schizophrenia Denies: Diabetes, Hepatitis, HIV, Seizures, Sexually Transmitted Disease, TIA - Surgical History Surgical History: No Surg Hx - Family History Family History: States: Unknown Family Hx, Hypertension - Immunization History Hx Tetanus Toxoid Vaccination: No Hx Influenza Vaccination: No Hx Pneumococcal Vaccination: No - Home Medications Home Medications: Ambulatory Orders Medication Instructions Recorded PARoxetine [Paxil] 30 mg PO DAILY #30 tab 07/17/16 Xanax 1 tab PO TID 04/12/17 ARIPiprazole [Abilify] 5 mg PO DAILY 15 Days #15 tab 04/28/17 ARIPiprazole [Abilify] 10 mg PO HS 15 Days #15 tab 04/28/17 Ciprofloxacin [Cipro] 500 mg PO Q12 tab 04/28/17 OXcarbazepine [Trileptal] 300 mg PO BID 15 Days #30 tab 04/28/17 Zolpidem [Ambien] 10 mg PO HS 3 Days #15 tab 04/28/17 Acetaminophen [Tylenol] 325 mg PO Q6 PRN #30 tab 06/17/17 Amoxicillin/Clavulanate [Augmentin 1 tab PO BID #14 tab 06/17/17 875 MG-125 MG] Benzonatate [Tessalon Perles] 200 mg PO TID PRN #21 sgl 06/17/17 Meclizine HCl 25 mg PO TID PRN #21 tab 06/17/17 Phenazopyridine HCl [Pyridium] 200 mg PO TID #7 tablet 06/17/17 Nitrofurantoin Macrocrystals 100 mg PO BID 5 Days cap 09/21/17 [Macrobid] Benzonatate [Tessalon Perle] 100 mg PO TID #20 capsule 10/28/17 predniSONE [predniSONE Tab] 60 mg PO DAILY #9 tab 10/28/17 - Allergies Allergies/Adverse Reactions: Allergies Allergy/AdvReac Type Severity Reaction Status Date / Time aloe vera Allergy RASH Verified 10/28/17 02:59 ibuprofen Allergy RASH Verified 10/28/17 02:59 paint Allergy Mild RASH Uncoded 10/28/17 02:59 Review of Systems ROS Statement: Except As Marked, All Systems Reviewed And Found Negative Constitutional: Negative for: Fever, Chills, Sweats Cardiovascular: Positive for: Light Headedness (when coughing) Respiratory: Positive for: Cough, Sputum Musculoskeletal: Positive for: Arm Pain (bilateral) Neurological: Positive for: Dizziness (when coughing) Physical Exam - Reviewed Nursing Documentation Reviewed: Yes Vital Signs Reviewed: Yes - Physical Exam Appears: Positive for: Non-toxic, No Acute Distress Head Exam: Positive for: ATRAUMATIC, NORMAL INSPECTION, NORMOCEPHALIC Skin: Positive for: Normal Color, Warm, Dry. Negative for: Rash Eye Exam: Positive for: EOMI, Normal appearance, PERRL ENT: Positive for: Normal ENT Inspection Neck: Positive for: Normal, Painless ROM, Supple Cardiovascular/Chest: Positive for: Regular Rate, Rhythm. Negative for: Murmur Respiratory: Positive for: Normal Breath Sounds. Negative for: Respiratory Distress Gastrointestinal/Abdominal: Positive for: Normal Exam, Soft. Negative for: Tenderness Back: Positive for: Normal Inspection. Negative for: L CVA Tenderness, R CVA Tenderness, Vertebral Tenderness Extremity: Positive for: Normal ROM (bilateral arms), Tenderness (tenderness along the crest of bilateral medial forearms, sensation intact) Neurologic/Psych: Positive for: Alert, Oriented - ECG O2 Sat by Pulse Oximetry: 98 (RA) Pulse Ox Interpretation: Normal Medical Decision Making Medical Decision Making: A/P: 47 y/o female with a PMHx of kidney stones presenting with cough and arm pain -Very unlikely pneumonia most likely URI -Arm pain is likely ongoing tendinitis -Will order CXR and administer Prednisone 05:25 CXR reviewed and no acute abnormalities were noted. Upon provider reevaluation, patient is feeling better and is stable for discharge. Counseling was provided and all questions were answered regarding diagnosis and need for follow up with PCP. There is agreement to discharge plan. Return precautions given. ----- Scribe Attestation: Documented by Delfino Serrano, acting as a scribe for Bob Morin MD. Provider Scribe Attestation: All medical record entries made by the Scribe were at my direction and personally dictated by me. I have reviewed the chart and agree that the record accurately reflects my personal performance of the history, physical exam, medical decision making, and the department course for this patient. I have also personally directed, reviewed, and agree with the discharge instructions and disposition. Disposition - Clinical Impression Clinical Impression: Cough, Tendinitis - Patient ED Disposition Is Patient to be Admitted: No Counseled Patient/Family Regarding: Studies Performed, Diagnosis, Need For Followup, Rx Given - Disposition Referrals: Adeola Mohan MD [Primary Care Provider] - Disposition: Routine/Home Disposition Time: 05:25 Condition: GOOD Prescriptions: Benzonatate [Tessalon Perle] 100 mg PO TID #20 capsule predniSONE [predniSONE Tab] 60 mg PO DAILY #9 tab Instructions: Cough in Adults, Tendonitis Forms: [employer] ([place])
[2017-10-28 06:16] VITALS: BP 150/92; PULSE 71; RESP 18; TEMP 97.6; O2SAT 99
--- NOTE | 2017-10-28 09:30 | RAD ---
Date of service: 10/28/2017 HISTORY: cough COMPARISON: Comparison chest 04/22/2017 TECHNIQUE: Chest PA and lateral FINDINGS: LUNGS: No active pulmonary disease. PLEURA: No significant pleural effusion identified. No pneumothorax apparent. CARDIOVASCULAR: Normal. OSSEOUS STRUCTURES: Mild multilevel degenerative spondylosis of the thoracic spine. Minor chronic anterior stature loss of several mid thoracic segments VISUALIZED UPPER ABDOMEN: Normal. OTHER FINDINGS: None. IMPRESSION: No active disease.
== END 2017-10-28 06:17 | disposition home or self-care (01) ==
LOC: H.ER 02:47
DX: R05 Cough (principal); M77.9 Enthesopathy, unspecified; Z86.59 Personal history of other mental and behavioral disorders; F43.10 Post-traumatic stress disorder, unspecified; I12.9 Hypertensive chronic kidney disease with stage 1 through stage 4 chronic kidney disease, or unspecified chronic kidney disease; J45.909 Unspecified asthma, uncomplicated; Z87.442 Personal history of urinary calculi

== ENCOUNTER 2017-11-04 03:49 | Emergency (ER) | payer MEDICAID ==
[2017-11-04 03:49] VITALS: BMI 26.6
[2017-11-04 04:06] VITALS: TEMP 98.9; O2SAT 98
--- NOTE | 2017-11-04 04:40 | ED PDOC ---
Upper Extremity Pain/Injury Time Seen by Provider: 11/04/17 04:20 Chief Complaint (Nursing): Upper Extremity Problem/Injury Chief Complaint (Provider): bilateral arm pain History Per: Patient History/Exam Limitations: no limitations Onset/Duration Of Symptoms: Days (weeks) Current Symptoms Are (Timing): Still Present Additional Complaint(s): 47 y/o female presents for evaluation of bilateral arm pain x 2 weeks. Patient states she was evaluated by her primary doctor and at another ED and prescribed Mobic which does not help. PAtient states her PMD told her she needs MRI's but can not get scheduled for one for another month. Pain worsened with movement. Patient admits to heavy lifting of bags, otherwise denies trauma to arms. Denies numbness/weakness upper extremities, limitation of movement. Past Medical History Reviewed: Historical Data, Nursing Documentation, Vital Signs Vital Signs: Last Vital Signs Temp 98.9 F 11/04/17 04:03 Pulse 70 11/04/17 04:03 Resp 16 11/04/17 04:03 BP 174/93 H 11/04/17 04:03 Pulse Ox 98 11/04/17 04:03 - Medical History PMH: Anemia, Anxiety, Asthma, Bipolar Disorder, Depression, HTN (Gestational), Kidney Stones, Post Traumatic Stress Disorder, Chronic Kidney Disease, Schizophrenia Denies: Diabetes, Hepatitis, HIV, Seizures, Sexually Transmitted Disease, TIA - Family History Family History: States: Unknown Family Hx, Hypertension - Immunization History Hx Tetanus Toxoid Vaccination: No Hx Influenza Vaccination: No Hx Pneumococcal Vaccination: No - Home Medications Home Medications: Ambulatory Orders Medication Instructions Recorded PARoxetine [Paxil] 30 mg PO DAILY #30 tab 07/17/16 Xanax 1 tab PO TID 04/12/17 ARIPiprazole [Abilify] 5 mg PO DAILY 15 Days #15 tab 04/28/17 ARIPiprazole [Abilify] 10 mg PO HS 15 Days #15 tab 04/28/17 Ciprofloxacin [Cipro] 500 mg PO Q12 tab 04/28/17 OXcarbazepine [Trileptal] 300 mg PO BID 15 Days #30 tab 04/28/17 Zolpidem [Ambien] 10 mg PO HS 3 Days #15 tab 04/28/17 Acetaminophen [Tylenol] 325 mg PO Q6 PRN #30 tab 02/27/18 Amoxicillin/Clavulanate [Augmentin 1 tab PO BID #14 tab 06/17/17 875 MG-125 MG] Benzonatate [Tessalon Perles] 200 mg PO TID PRN #21 sgl 06/17/17 Meclizine HCl 25 mg PO TID PRN #21 tab 06/17/17 Phenazopyridine HCl [Pyridium] 200 mg PO TID #7 tablet 06/17/17 Nitrofurantoin Macrocrystals 100 mg PO BID 5 Days cap 09/21/17 [Macrobid] Benzonatate [Tessalon Perle] 100 mg PO TID #20 capsule 10/28/17 predniSONE [predniSONE Tab] 60 mg PO DAILY #9 tab 10/28/17 Naproxen [Naprosyn] 500 mg PO Q12 PRN #14 tablet 11/04/17 - Allergies Allergies/Adverse Reactions: Allergies Allergy/AdvReac Type Severity Reaction Status Date / Time aloe vera Allergy RASH Verified 10/28/17 02:59 ibuprofen Allergy RASH Verified 10/28/17 02:59 paint Allergy Mild RASH Uncoded 10/28/17 02:59 Review of Systems ROS Statement: Except As Marked, All Systems Reviewed And Found Negative Musculoskeletal: Positive for: Arm Pain Physical Exam - Reviewed Nursing Documentation Reviewed: Yes Vital Signs Reviewed: Yes - Physical Exam Appears: Positive for: Well, Non-toxic, No Acute Distress (sleeping) Cardiovascular/Chest: Positive for: Regular Rate, Rhythm Respiratory: Positive for: Normal Breath Sounds Pulses-Radial (L): 2+ Pulses-Radial (R): 2+ Extremity: Positive for: Normal ROM, Tenderness (tender to palpate lateral aspect bilateral forearms without edema, erythema, crepitus, deformity. FROM. DIstal NV/motor intact) - ECG O2 Sat by Pulse Oximetry: 98 - Progress ED Course And Treament: Toradol IM On re-eval, patient sleeping; upon awakening notes improvement of pain Patient educated on findings, discharged with rx naproxen Advised RICE Follow up for MRI as previously instructed Return precautions given Disposition - Clinical Impression Clinical Impression: Bilateral arm pain - Patient ED Disposition Is Patient to be Admitted: No Counseled Patient/Family Regarding: Diagnosis, Need For Followup, Rx Given - Disposition Referrals: Adeola Mohan MD [Primary Care Provider] - Disposition: Routine/Home Disposition Time: 05:53 Condition: IMPROVED Prescriptions: Naproxen [Naprosyn] 500 mg PO Q12 PRN #14 tablet PRN Reason: Pain, Moderate (4-7) Instructions: Muscle and Bone Pain (DC) Forms: [employer] (Italian)
[2017-11-04 06:32] VITALS: BP 161/89; PULSE 75; RESP 17
== END 2017-11-04 06:30 | disposition home or self-care (01) ==
LOC: H.ER 03:49
DX: M79.603 Pain in arm, unspecified (principal); I12.9 Hypertensive chronic kidney disease with stage 1 through stage 4 chronic kidney disease, or unspecified chronic kidney disease
CPT/HCPCS: 81025; 96372; 99283; J1885

== ENCOUNTER 2017-11-10 23:52 | Emergency (ER) | payer MEDICAID ==
[2017-11-10 23:53] VITALS: BMI 26.6
--- NOTE | 2017-11-11 00:51 | ED PDOC ---
HPI: Abdomen Time Seen by Provider: 11/11/17 00:09 Chief Complaint (Nursing): Abdominal Pain Chief Complaint (Provider): abdominal pain History Per: Patient History/Exam Limitations: no limitations Onset/Duration Of Symptoms: Days (3), Waxing/Waning Current Symptoms Are (Timing): Still Present Location Of Pain/Discomfort: RLQ Quality Of Discomfort: "Pain" Additional Complaint(s): 47 y/o female presents for evaluation of right lower abdominal pain x 3 days. Pain worse with walking. Denies fever, nausea/vomiting, chest pain, shortness of breath, palpitations, changes in bowel movements, urinary symptoms, vaginal bleeding/discharge. Past Medical History Reviewed: Historical Data, Nursing Documentation, Vital Signs Vital Signs: Last Vital Signs Temp 97.7 F 11/11/17 05:09 Pulse 72 11/11/17 05:09 Resp 16 11/11/17 05:09 BP 176/79 H 11/11/17 05:09 Pulse Ox 98 11/11/17 05:09 - Medical History PMH: Anemia, Anxiety, Asthma, Bipolar Disorder, Depression, HTN (Gestational), Kidney Stones, Post Traumatic Stress Disorder, Chronic Kidney Disease, Schizophrenia Denies: Diabetes, Hepatitis, HIV, Seizures, Sexually Transmitted Disease, TIA - Surgical History Surgical History: No Surg Hx - Family History Family History: States: Unknown Family Hx, Hypertension - Immunization History Hx Tetanus Toxoid Vaccination: No Hx Influenza Vaccination: No Hx Pneumococcal Vaccination: No - Home Medications Home Medications: Ambulatory Orders Medication Instructions Recorded PARoxetine [Paxil] 30 mg PO DAILY #30 tab 07/17/16 Xanax 1 tab PO TID 04/12/17 ARIPiprazole [Abilify] 5 mg PO DAILY 15 Days #15 tab 04/28/17 ARIPiprazole [Abilify] 10 mg PO HS 15 Days #15 tab 04/28/17 Ciprofloxacin [Cipro] 500 mg PO Q12 tab 04/28/17 OXcarbazepine [Trileptal] 300 mg PO BID 15 Days #30 tab 04/28/17 Zolpidem [Ambien] 10 mg PO HS 3 Days #15 tab 04/28/17 Acetaminophen [Tylenol] 325 mg PO Q6 PRN #30 tab 06/17/17 Amoxicillin/Clavulanate [Augmentin 1 tab PO BID #14 tab 06/17/17 875 MG-125 MG] Benzonatate [Tessalon Perles] 200 mg PO TID PRN #21 sgl 06/17/17 Meclizine HCl 25 mg PO TID PRN #21 tab 06/17/17 Phenazopyridine HCl [Pyridium] 200 mg PO TID #7 tablet 06/17/17 Nitrofurantoin Macrocrystals 100 mg PO BID 5 Days cap 09/21/17 [Macrobid] Benzonatate [Tessalon Perle] 100 mg PO TID #20 capsule 10/28/17 predniSONE [predniSONE Tab] 60 mg PO DAILY #9 tab 10/28/17 Naproxen [Naprosyn] 500 mg PO Q12 PRN #14 tablet 11/04/17 traMADol/Acetaminophen [Ultracet 1 tab PO Q6 PRN #12 tab 11/11/17 325 MG-37.5 MG] - Allergies Allergies/Adverse Reactions: Allergies Allergy/AdvReac Type Severity Reaction Status Date / Time aloe vera Allergy RASH Verified 11/06/17 14:43 ibuprofen Allergy RASH Verified 11/06/17 14:43 paint Allergy Mild RASH Uncoded 11/06/17 14:43 Review of Systems ROS Statement: Except As Marked, All Systems Reviewed And Found Negative Gastrointestinal: Positive for: Abdominal Pain Physical Exam - Reviewed Nursing Documentation Reviewed: Yes Vital Signs Reviewed: Yes - Physical Exam Appears: Positive for: Well, Non-toxic, No Acute Distress Head Exam: Positive for: ATRAUMATIC, NORMAL INSPECTION, NORMOCEPHALIC Skin: Positive for: Normal Color Eye Exam: Positive for: Normal appearance Cardiovascular/Chest: Positive for: Regular Rate, Rhythm Respiratory: Positive for: Normal Breath Sounds Gastrointestinal/Abdominal: Positive for: Bowel Sounds, Soft, Tenderness (rlq, right groin) Extremity: Positive for: Normal ROM Neurologic/Psych: Positive for: Alert, Oriented (x3) - Laboratory Results Result Diagrams: 11/11/17 01:31 11/11/17 01:31 - ECG O2 Sat by Pulse Oximetry: 96 - Progress ED Course And Treament: labs, urine, CT abd/pelvis, IV toradol EXAM: CT Abdomen and Pelvis With Intravenous Contrast EXAM DATE/TIME: 11/11/2017 12:48 AM CLINICAL HISTORY: 47 years old, female; Pain; Abdominal pain; Localized; Right upper quadrant (ruq ); Prior surgery; Surgery date: 6+ months; Surgery type: Tubal ligation; Additional info: Rlq pain TECHNIQUE: Axial computed tomography images of the abdomen and pelvis with intravenous contrast. All CT scans at this facility use at least one of these dose optimization techniques: automated exposure control; mA and/or kV adjustment per patient size (includes targeted exams where dose is matched to clinical indication); or iterative reconstruction. CONTRAST: 90 ml of administered intravenously. COMPARISON: No relevant prior studies available. FINDINGS: Lower thorax: No acute findings. ABDOMEN: Liver: Multiple small hepatic hypodensities which likely represent cysts and/or hemangiomas in the absence of known malignancy. Gallbladder and bile ducts: Normal. No calcified stones. No ductal dilation. Pancreas: Normal. No ductal dilation. Spleen: Normal. No splenomegaly. Adrenals: Normal. No mass. Kidneys and ureters: Moderate right sided hydronephrosis and hydroureter secondary to a 1.1 x 0.9 cm stone. Multiple additional nonobstructing stones in the right kidney measuring up to 4 mm. Stomach and bowel: Normal. No obstruction. No mucosal thickening. Appendix: Normal appendix. PELVIS: Bladder: Unremarkable as visualized. Reproductive: Left adnexal 2.1 cm cyst. ABDOMEN and PELVIS: Intraperitoneal space: Normal. No free air. No significant fluid collection. Bones/joints: Degenerative changes of the osseous structures. Soft tissues: Unremarkable. Vasculature: Heavy atherosclerotic calcification of the aorta and branching vessels. Lymph nodes: Normal. No enlarged lymph nodes. IMPRESSION: Moderate right sided hydronephrosis and hydroureter secondary to a 1.1 x 0.9 cm stone. On re-eval, patient resting comfortably. No vomiting. Patient educated on findings, states she has history of kidney stones which have required urological intervention; states she has seen Dr. Leavitt in office before and would like to follow up with him again. Case discussed with Dr. Leavitt, recommends follow up in office today, rx Ultracet for pain. Copies of labs/CT given to patient to bring to office Patient instructed to call office in am to schedule appt Rx ultracet provided REturn precautions given Disposition - Clinical Impression Clinical Impression: Kidney stone on right side - Disposition Referrals: Ingrid Leavitt MD [Medical Doctor] - Adeola Mohan MD [Primary Care Provider] - Disposition Time: 05:30 Condition: IMPROVED Prescriptions: traMADol/Acetaminophen [Ultracet 325 MG-37.5 MG] 1 tab PO Q6 PRN #12 tab PRN Reason: Pain Instructions: Kidney Stones in Adults Forms: [facility] (Togolese)
[2017-11-11 01:35] LABS: BASO # 0.1 K/uL (0.0-0.2); BASO % 0.8 % (0.0-2.0); EOS # 0.7 K/uL (0.0-0.7); EOS % 8.6 % (0.0-4.0); HEMOGLOBIN 11.4 g/dL (12.0-16.0); LYMPH # 1.4 K/uL (1.0-4.3); LYMPH % 17.6 % (20.0-40.0); MEAN CELL VOLUME 76.4 fl (81.0-99.0); MEAN CORPUSCULAR HEMOGLOBIN 23.7 pg (27.0-31.0); MEAN CORPUSCULAR HGB CONC 31.1 g/dL (33.0-37.0); MEAN PLATELET VOLUME 9.2 fl (7.2-11.7); MONO # 0.6 K/uL (0.0-0.8); MONO % 7.1 % (0.0-10.0); NEUT # 5.2 K/uL (1.8-7.0); NEUT % 65.9 % (50.0-75.0); RBC 4.8 Mil/uL (3.80-5.20); RED CELL DISTRIBUTION WIDTH 20.2 % (11.5-14.5); WHITE BLOOD COUNT 7.9 K/uL (4.8-10.8)
[2017-11-11 01:44] LABS: ALB/GLOB RATIO 1.2 (1.0-2.1); ALBUMIN 3.5 g/dL (3.5-5.0); ALT/SGPT 25 U/L (9-52); AST/SGOT 30 U/L (14-36); BLOOD UREA NITROGEN 26 mg/dl (7-17); CALCIUM 8.5 mg/dL (8.4-10.2); GFR AFRICAN-AMERICAN > 60; GFR NON-AFRICAN AMERICAN > 60
[2017-11-11 01:47] LABS: SQUAMOUS EPITHIAL < 1 /hpf (0-5); URINE BILIRUBIN MODERATE (NEGATIVE); URINE BLOOD SMALL (NEGATIVE); URINE CLARITY CLOUDY (Clear); URINE COLOR YELLOW (YELLOW); URINE GLUCOSE (UA) NEG (Normal); URINE LEUKOCYTE ESTERASE MOD Leu/uL (Negative); URINE PROTEIN 100 mg/dL (NEGATIVE)
[2017-11-11] MEDS ORDERED: Sodium Chloride 0.9% 100 ML ONE (01:53)
[2017-11-11] MEDS ORDERED: Iohexol 300 100 ML IJ ONE (01:53)
[2017-11-11 05:10] VITALS: BP 176/79; PULSE 72; RESP 16; TEMP 97.7
[2017-11-11 05:28] VITALS: O2SAT 96
--- NOTE | 2017-11-11 10:06 | CT ---
Date of service: 11/11/2017 PROCEDURE: CT Abdomen and Pelvis with contrast HISTORY: Right lower quadrant pain. COMPARISON: None. TECHNIQUE: Contrast dose: 90 cc Omnipaque 300. Radiation dose: Total exam DLP = 424.34 mGy-cm. This CT exam was performed using one or more of the following dose reduction techniques: Automated exposure control, adjustment of the mA and/or kV according to patient size, and/or use of iterative reconstruction technique. FINDINGS: LOWER THORAX: Unremarkable. LIVER: Unremarkable. No gross lesion or ductal dilatation. Incidental finding(s): Sub cm cyst right hepatic lobe. GALLBLADDER AND BILE DUCTS: Unremarkable. PANCREAS: Unremarkable. No gross lesion or ductal dilatation. SPLEEN: Unremarkable. ADRENALS: Unremarkable. No mass. KIDNEYS AND URETERS: Right kidney and ureter: Right hydronephrosis, proximal hydroureter related to 9 x 11 mm calculus at the level of the L4 vertebral body. The right kidney is atrophic, of the proximal right ureter is mildly dilated tortuous. The findings suggest a component of chronicity. There tiny upper tract nonobstructing calculi on the right. Left kidney and ureter: Unremarkable VASCULATURE: Unremarkable. No aortic aneurysm. BOWEL: Unremarkable. No obstruction. No gross mural thickening. APPENDIX: Normal appendix. PERITONEUM: Unremarkable. No free fluid. No free air. LYMPH NODES: Unremarkable. No enlarged lymph nodes. BLADDER: Unremarkable. REPRODUCTIVE: Unremarkable. BONES: No acute fracture. OTHER FINDINGS: None. IMPRESSION: Unilateral, right obstructive uropathy related to 9 x 11 mm calculus. The degree of tortuosity of the right ureter and the presence of right renal cortical atrophy suggests a component of chronicity to hydronephrosis/hydroureter. Concordant results (preliminary interpretation) provided by [facility]. Procedure Completed: 02:15 Preliminary ([facility]) Report: Dictated and Authenticated: 04:31. Final Interpretation: 10:04 November 11, 2017.
== END 2017-11-11 05:34 | disposition home or self-care (01) ==
LOC: H.ER 23:52
DX: N20.0 Calculus of kidney (principal); J45.909 Unspecified asthma, uncomplicated; Z87.442 Personal history of urinary calculi; Z86.59 Personal history of other mental and behavioral disorders; F43.10 Post-traumatic stress disorder, unspecified; I12.9 Hypertensive chronic kidney disease with stage 1 through stage 4 chronic kidney disease, or unspecified chronic kidney disease
CPT/HCPCS: 74177; 80053; 81003; 81025; 85025; 87086; 96374; 99283; J1885; Q9967

== ENCOUNTER 2018-01-13 20:17 | Emergency (ER) | payer MEDICAID ==
[2018-01-13 20:18] VITALS: BMI 26.6
[2018-01-13 20:27] VITALS: RESP 18; O2SAT 98
[2018-01-13] MEDS ORDERED: Sodium Chloride 0.9% 1,000 ML IV STA (20:55)
--- NOTE | 2018-01-13 21:01 | ED PDOC ---
HPI: Abdomen Chief Complaint (Provider): abdominal pain History Per: Patient History/Exam Limitations: no limitations Onset/Duration Of Symptoms: Days (2), Waxing/Waning Current Symptoms Are (Timing): Still Present Associated Symptoms: Urinary Symptoms (hematuria) <Tasha Lowe - Last Filed: 01/13/18 23:07> <Danielle Abernathy - Last Filed: 01/17/18 12:09> Time Seen by Provider: 01/13/18 20:38 Chief Complaint (Nursing): Female Genitourinary Additional Complaint(s): 47 y/o female presents for evaluation of intermittent abdominal pain, right groin pain x 2 days. Associated dysuria, hematuria. Patient states she had stent placed for obstructive urinary calculus 3 weeks ago here with Dr. Leavitt and has not been able to get an appointment for stent removal. Denies fever, nausea/vomiting, chest pain, shortness of breath, palpitations, changes in bowel movements, vaginal bleeding/discharge. Patient currently on Macrobid for UTI (Tasha Lowe) 47 y/o female presents for evaluation of intermittent abdominal pain, right groin pain x 2 days. Associated dysuria, hematuria. Patient states she had stent placed for obstructive urinary calculus 3 weeks ago here with Dr. Leavitt and has not been able to get an appointment for stent removal. Denies fever, nausea/vomiting, chest pain, shortness of breath, palpitations, changes in bowel movements, vaginal bleeding/discharge. Patient currently on Macrobid for UTI (Danielle Abernathy) Supervising Attending Note - Supervising Attending Note The Documented history was done by the: Physician Insulation Worker The documented physical exam was done by the: Physician Insulation Worker - Attestation: I have personally seen and examined this patient.: No I have fully participated in the care of the patient.: Yes I have reviewed all pertinent clinical information: Yes <Danielle Abernathy - Last Filed: 01/17/18 12:09> Past Medical History Reviewed: Historical Data, Nursing Documentation, Vital Signs - Medical History PMH: Anemia, Anxiety, Asthma, Bipolar Disorder, Depression, HTN (Gestational), Kidney Stones, Post Traumatic Stress Disorder, Chronic Kidney Disease, Schizophrenia Denies: Diabetes, Hepatitis, HIV, Seizures, Sexually Transmitted Disease, TIA - Surgical History Surgical History: No Surg Hx - Family History Family History: States: Unknown Family Hx, Hypertension - Immunization History Hx Tetanus Toxoid Vaccination: No Hx Influenza Vaccination: No Hx Pneumococcal Vaccination: No <Tasha Lowe - Last Filed: 01/13/18 23:07> <Danielle Abernathy - Last Filed: 01/17/18 12:09> Vital Signs: Last Vital Signs Temp 97.8 F 01/13/18 23:00 Pulse 81 01/13/18 23:00 Resp 18 01/13/18 23:00 BP 146/74 01/13/18 23:00 Pulse Ox 98 01/13/18 23:13 - Home Medications Home Medications: Ambulatory Orders Medication Instructions Recorded ALPRAZolam [Xanax] 0.5 mg PO DAILY 12/19/17 RX: PARoxetine [Paxil] 40 mg PO DAILY #30 tab 12/29/17 Nitrofurantoin Macrocrystals 1 cap PO BID #14 cap 01/11/18 [Macrobid] Acetaminophen with Codeine 1 tab PO Q6 PRN #10 tab 01/13/18 [Tylenol with Codeine No. 3 300 mg-30 mg] - Allergies Allergies/Adverse Reactions: Allergies Allergy/AdvReac Type Severity Reaction Status Date / Time aloe vera Allergy RASH Verified 01/13/18 20:23 ibuprofen Allergy RASH Verified 01/13/18 20:23 ketorolac [From Toradol] Allergy RASH Verified 01/13/18 20:23 tramadol Allergy RASH Verified 01/13/18 20:23 paint Allergy Mild RASH Uncoded 01/13/18 20:23 Review of Systems ROS Statement: Except As Marked, All Systems Reviewed And Found Negative Gastrointestinal: Positive for: Abdominal Pain <Tasha Lowe - Last Filed: 01/13/18 23:07> Physical Exam - Reviewed Nursing Documentation Reviewed: Yes Vital Signs Reviewed: Yes - Physical Exam Appears: Positive for: Well, Non-toxic, No Acute Distress Head Exam: Positive for: ATRAUMATIC, NORMAL INSPECTION, NORMOCEPHALIC Skin: Positive for: Normal Color Eye Exam: Positive for: Normal appearance ENT: Positive for: Normal ENT Inspection Cardiovascular/Chest: Positive for: Regular Rate, Rhythm Respiratory: Positive for: Normal Breath Sounds Gastrointestinal/Abdominal: Positive for: Bowel Sounds, Soft, Tenderness (right flank, rlq) Back: Positive for: Normal Inspection Extremity: Positive for: Normal ROM Neurologic/Psych: Positive for: Alert, Oriented <Tasha Lowe - Last Filed: 01/13/18 23:07> - Laboratory Results Result Diagrams: 01/13/18 21:27 01/13/18 21:27 - ECG O2 Sat by Pulse Oximetry: 98 - Other Rad KUB X-Ray: Viewed By Ak X-Ray Interpretation: + stent <Tasha Lowe - Last Filed: 01/13/18 23:07> - Laboratory Results Result Diagrams: 01/13/18 21:27 01/13/18 21:27 <Danielle Abernathy - Last Filed: 01/17/18 12:09> - Progress ED Course And Treament: labs, urine, percocet PO Case discussed with Dr. Leavitt, recommends KUB and then patient can be discharged with instructions to call office Friday Patient educated on findings, advised to call office Friday without fail Rx Tylenol #3 provided Return precautions given Patient demonstrates full understanding of discharge instructions Patient requires no further intervention in the ED and is stable for discharge at this time (Tasha Lowe) labs, urine, percocet PO Case discussed with Dr. Leavitt, recommends KUB and then patient can be discharged with instructions to call office Friday Patient educated on findings, advised to call office Friday without fail Rx Tylenol #3 provided Return precautions given Patient demonstrates full understanding of discharge instructions Patient requires no further intervention in the ED and is stable for discharge at this time (Danielle Abernathy) Disposition - Patient ED Disposition Is Patient to be Admitted: No Counseled Patient/Family Regarding: Studies Performed, Diagnosis, Need For Followup, Rx Given - Disposition Disposition: Routine/Home Disposition Time: 23:09 <Tasha Lowe - Last Filed: 01/13/18 23:07> <Danielle Abernathy - Last Filed: 01/17/18 12:09> - Clinical Impression Clinical Impression: Renal colic, Hematuria, UTI (urinary tract infection) - Disposition Referrals: Ingrid Leavitt MD [Medical Doctor] - Condition: IMPROVED Additional Instructions: Call Dr. Leavitt's office Friday WITHOUT FAIL Prescriptions: Acetaminophen with Codeine [Tylenol with Codeine No. 3 300 mg-30 mg] 1 tab PO Q6 PRN #10 tab PRN Reason: Pain Instructions: Urinary Tract Infections in Adults, Blood in the Urine (Hematuria) in Adults, Renal Colic Forms: [email or web address] (Japanese)
[2018-01-13] MEDS ORDERED: Oxycodone/Acetaminophen 5/325 mg Tab PO ONE (21:22)
[2018-01-13] MEDS ORDERED: Oxycodone/Acetaminophen 5/325 mg Tab ONE (21:25)
[2018-01-13 21:38] LABS: BASO # 0.1 K/uL (0.0-0.2); BASO % 1.2 % (0.0-2.0); EOS % 11.8 % (0.0-4.0); HEMOGLOBIN 11.3 g/dL (12.0-16.0); LYMPH # 1.7 K/uL (1.0-4.3); LYMPH % 20.3 % (20.0-40.0); MEAN CELL VOLUME 78.5 fl (81.0-99.0); MEAN CORPUSCULAR HGB CONC 31.9 g/dL (33.0-37.0); MEAN PLATELET VOLUME 8.1 fl (7.2-11.7); MONO # 0.8 K/uL (0.0-0.8); MONO % 9.6 % (0.0-10.0); NEUT # 4.8 K/uL (1.8-7.0); NEUT % 57.1 % (50.0-75.0); NRBC % 0.1 % (0.0-0.0); RBC 4.52 Mil/uL (3.80-5.20); WHITE BLOOD COUNT 8.3 K/uL (4.8-10.8)
[2018-01-13 21:42] LABS: SQUAMOUS EPITHIAL 2 /hpf (0-5); URINE BACTERIA OCC (<OCC); URINE BILIRUBIN NEGATIVE (NEGATIVE); URINE BLOOD LARGE (NEGATIVE); URINE CLARITY CLOUDY (Clear); URINE COLOR YELLOW (YELLOW); URINE GLUCOSE (UA) NEG (Normal); URINE HYALINE CAST 0-2 /hpf (0-2); URINE LEUKOCYTE ESTERASE LARGE Leu/uL (Negative); URINE PROTEIN 30 mg/dL (NEGATIVE); URINE UROBILINOGEN 0.2-1.0 mg/dL (0.2-1.0)
[2018-01-13 21:57] LABS: ALB/GLOB RATIO 1.1 (1.0-2.1); ALBUMIN 3.5 g/dL (3.5-5.0); ALT/SGPT 34 U/L (9-52); AST/SGOT 29 U/L (14-36); BLOOD UREA NITROGEN 19 mg/dl (7-17); CALCIUM 9.4 mg/dL (8.4-10.2); GFR NON-AFRICAN AMERICAN 59
[2018-01-14 01:42] VITALS: BP 146/74; PULSE 81; TEMP 97.8
--- NOTE | 2018-01-14 10:12 | RAD ---
Date of service: 01/13/2018 HISTORY: h/o right ureteral calculus with stent COMPARISON: Abdomen pelvis CT examination 12/19/2017. FINDINGS: BOWEL: Gas seen distending numerous large bowel loops predominantly with limited gas seen in small bowel. Moderate retained fecal material seen at the ascending colon and minimal throughout the remainder. Nonobstructive bowel gas pattern appreciated. A right-sided double-J ureteral stent is identified placed with numerous calculi identified along the distal 3rd of the stent compatible with Steinstrasse. None definitively shown at the proximal and mid stent segments. No additional suspicious intra-abdominal or pelvic radiodensities. BONES: Normal. OTHER FINDINGS: None. IMPRESSION: Right double-J ureteral stent with multiple calculi along the distal 3rd as discussed above. Nonobstructive bowel gas pattern appreciated.
== END 2018-01-13 23:00 | disposition home or self-care (01) ==
LOC: H.ER 20:17
DX: N23 Unspecified renal colic (principal); R31.9 Hematuria, unspecified; N39.0 Urinary tract infection, site not specified; F31.9 Bipolar disorder, unspecified; I12.9 Hypertensive chronic kidney disease with stage 1 through stage 4 chronic kidney disease, or unspecified chronic kidney disease
CPT/HCPCS: 74018; 80053; 81003; 81025; 85025; 87086; 99285; J7030

== ENCOUNTER 2018-02-14 23:03 | Emergency (ER) | payer MEDICAID ==
[2018-02-14 23:03] VITALS: BMI 26.6
--- NOTE | 2018-02-15 04:48 | ED PDOC ---
HPI: Psych/Substance Abuse Time Seen by Provider: 02/14/18 23:15 Chief Complaint (Nursing): Psychiatric Evaluation History Per: Patient History/Exam Limitations: no limitations Onset/Duration Of Symptoms: Hrs Suicide/Self Injury Attempted (Context): None Additional Complaint(s): Hx of schizoaffective disorder presenting with resolved anxiety. STates she lives in the long term and doesn't feel comfortable there, requesting to stay in ER all night. Denies suicidal or homicidal ideation. Past Medical History Reviewed: Historical Data Vital Signs: Last Vital Signs Temp 99.4 F 02/14/18 23:07 Pulse 97 H 02/14/18 23:07 Resp 18 02/14/18 23:07 BP 143/96 H 02/14/18 23:07 Pulse Ox 98 02/14/18 23:07 - Medical History PMH: Anemia, Anxiety, Asthma, Bipolar Disorder, Depression, HTN (Gestational), Kidney Stones, Post Traumatic Stress Disorder, Chronic Kidney Disease, Schizophrenia Denies: HIV, Seizures, Sexually Transmitted Disease, TIA - Family History Family History: States: Hypertension - Immunization History Hx Tetanus Toxoid Vaccination: No Hx Influenza Vaccination: No Hx Pneumococcal Vaccination: No - Home Medications Home Medications: Ambulatory Orders Medication Instructions Recorded PARoxetine [Paxil] 40 mg PO DAILY #30 tab 12/29/17 - Allergies Allergies/Adverse Reactions: Allergies Allergy/AdvReac Type Severity Reaction Status Date / Time aloe vera Allergy RASH Verified 02/14/18 09:55 ibuprofen Allergy RASH Verified 02/14/18 09:55 ketorolac [From Toradol] Allergy RASH Verified 02/14/18 09:55 tramadol Allergy RASH Verified 02/14/18 09:55 paint Allergy Mild RASH Uncoded 02/14/18 09:55 Review of Systems ROS Statement: Except As Marked, All Systems Reviewed And Found Negative Physical Exam - Reviewed Nursing Documentation Reviewed: Yes Vital Signs Reviewed: Yes - Physical Exam Appears: Positive for: Well, Non-toxic, No Acute Distress Head Exam: Positive for: ATRAUMATIC, NORMAL INSPECTION, NORMOCEPHALIC Skin: Positive for: Normal Color, Warm, DRY Eye Exam: Positive for: EOMI, Normal appearance, PERRL ENT: Positive for: Normal ENT Inspection Neck: Positive for: Normal, Painless ROM Cardiovascular/Chest: Positive for: Regular Rate, Rhythm Respiratory: Positive for: CNT, Normal Breath Sounds Gastrointestinal/Abdominal: Positive for: Normal Exam, Soft Back: Positive for: Normal Inspection Extremity: Positive for: Normal ROM Neurologic/Psych: Positive for: Alert, collections technician II-XII, Oriented. Negative for: Motor/Sensory Deficits - ECG O2 Sat by Pulse Oximetry: 98 Pulse Ox Interpretation: Normal Medical Decision Making Medical Decision Making: Patient with resolved anxiety Has no acute medical or psychiatric issue Will discharge in AM Disposition - Clinical Impression Clinical Impression: Depressive disorder, Anxiety - Patient ED Disposition Is Patient to be Admitted: No - Disposition Referrals: [facility] [Outside] Disposition: Routine/Home Disposition Time: 04:47 Condition: STABLE Instructions: Anxiety, Adult (DC)
[2018-02-15 05:32] VITALS: BP 144/83; PULSE 89; RESP 16; TEMP 98.2; O2SAT 100
== END 2018-02-15 05:39 | disposition home or self-care (01) ==
LOC: H.ER 23:03
DX: F32.9 Major depressive disorder, single episode, unspecified (principal); F43.10 Post-traumatic stress disorder, unspecified; I12.9 Hypertensive chronic kidney disease with stage 1 through stage 4 chronic kidney disease, or unspecified chronic kidney disease; J45.909 Unspecified asthma, uncomplicated; Z87.442 Personal history of urinary calculi; Z86.59 Personal history of other mental and behavioral disorders; Z00.8 Encounter for other general examination